=== PATIENT | female | born 1960 | race Caucasian/White ===

== ENCOUNTER 2022-04-19 09:16 | Emergency (ER) | payer MEDICAID, OTHER ==
[~2022-04-19] VITALS: Ht 170.2 cm; Wt 102.8 kg
[~2022-04-19 09:16] MED LIST: ACET60TA10; BENZ1TAB2 PO; CHLO50TA3 PO; CLON0.1T; DIVA500T13 PO; ERYT-124 PO; METF-370 PO; OMEP20TA69; SIMV20TA2 PO; TOPI50TA32; TRAM50TA2 PO; [UNRECOGNIZED DRUG - CODE]
[2022-04-19 09:53] VITALS: BP 156/100
[2022-04-19] MEDS ORDERED: ACETAMINOPHEN 500 MG TAB PO ONE (10:45)
[2022-04-19] MEDS ORDERED: METH750T22 PO (11:06)
[2022-04-19] MEDS ORDERED: ACET-1080 PO (11:06)
== END 2022-04-19 11:11 | disposition home or self-care (01) ==
LOC: ER 09:16
DX: S16.1XXA Strain of muscle, fascia and tendon at neck level, initial encounter (principal); S20.212A Contusion of left front wall of thorax, initial encounter; J44.9 Chronic obstructive pulmonary disease, unspecified; E11.9 Type 2 diabetes mellitus without complications; E78.5 Hyperlipidemia, unspecified; F17.210 Nicotine dependence, cigarettes, uncomplicated; Z88.0 Allergy status to penicillin; Z88.6 Allergy status to analgesic agent; Z90.710 Acquired absence of both cervix and uterus; V43.52XA Car driver injured in collision with other type car in traffic accident, initial encounter; Y93.89 Activity, other specified; Y92.89 Other specified places as the place of occurrence of the external cause; Y99.8 Other external cause status
CPT/HCPCS: 71046; 72040

== ENCOUNTER 2024-07-20 09:41 | Day surgery (SDC) | payer OTHER ==
[2024-07-20] VITALS (9 sets, daily range): BP systolic 128–167; BP diastolic 54–94; PULSE 83–93; RESP 14–18; TEMP 98.1; O2SAT 93–97
[~2024-07-20] VITALS: Ht 172.7 cm; Wt 98.0 kg
[~2024-07-20 09:41] MED LIST changes: -ACET60TA10; +ALBU108A5 IN; +AML5T PO; +ASPI-543 PO; -BENZ1TAB2 PO; +CHLO25TA PO; +CHLO25TA2 PO; -CHLO50TA3 PO; -DIVA500T13 PO; -ERYT-124 PO; +LISI40TA16 PO; +OMEP20TA PO; -OMEP20TA69; -SIMV20TA2 PO; +SIMV20TA20 PO; -TOPI50TA32; -TRAM50TA2 PO; +TRAZ-227 PO; -[UNRECOGNIZED DRUG - CODE]
[2024-07-20] MEDS ORDERED: MIDAZOLAM HCL 2MG/2ML 2ml VIAL (1mg/ml) ONE (11:26)
[2024-07-20] MEDS ORDERED: fentaNYL CITRATE 100 MCG/2 ML VL ONE (11:26)
[2024-07-20] MEDS ORDERED: VERAPAMIL 2.5MG/ML INJ 2ML VIAL IV ONE (11:26)
[2024-07-20] MEDS ORDERED: ANGIOMAX 250 MG VIAL IV ONE (11:26)
[2024-07-20] MEDS ORDERED: LIDOCAINE 2%HCL (LOCAL ANESTH.) INJ 20ML MDV ONE (11:26)
[2024-07-20] MEDS ORDERED: SODIUM CHL 0.9% 0 ML ONE (11:26)
[2024-07-20] MEDS ORDERED: IODIXANOL 320MG/ML 100ML BTL IV ONE (11:41)
[2024-07-20] MEDS ORDERED: HEPARIN SODIUM (PORCINE) 5000 UNITS/ML 1ML VIAL ONE (12:22)
--- NOTE | 2024-07-20 12:31 | DVHOP2 ---
Operative Report Operative Report CARDIAC TOW PICKER PROCEDURE REPORT [place], [place] Date of Service: 07/20/24 Bill Of Lading Clerk: Maria Elena Geller MD PROCEDURES PERFORMED: Coronary angiogram, left heart catheterization, conscious sedation administration and supervision, less than 15 minutes; fluoroscopy use and interpretation. FFR 1 vessel PREOPERATIVE DIAGNOSES: CT calcium LAD POSTOP DIAGNOSIS: moderate CAD DESCRIPTION OF PROCEDURE: The patient or appropriate family signed informed consent understanding the risks, benefits and alternatives of the procedure, they wished to proceed. The patient was brought [place] the cardiac superintendent [facility]ophysical [place] The patient was prepped in a sterile fashion. Sedation was used per cardiac cath protocol. I administered 2 mL of 2% lidocaine to the right wrist. With an antegrade front wall puncture. I cannulated the right radial artery and placed a 6-[place] Glidesheath slender. Next, an intra-arterial spasmolytic was administered. Next, a - 6French Greenleaf catheter and JR4 and were used for coronary angiogram and LVEDP measurement and pressure pullback. At the completion of procedure, all guides and wires were removed, and there were no immediate complications. 5000 U of IV heparin given. FINDINGS: RCA: Moderate vessel off the right sinus of Valsalva, there is a prox RCA 50- 60% stenosis. cath works FFR was 0.79 which is significatn however the lesion was close to the catheter and thought to be intermediate . LEFT MAIN: Moderate size left main, it bifurcates into LAD and circumflex. no severe stenosis CIRCUMFLEX: Moderate caliber vessel coming off the left main with no flow limiting stenosis. LAD: LAD is a moderate caliber vessel coming of the left main. very tortuous vessel. mid LAD has 30% stenosis and a small intramyocardial bridge noted. LVEDP of 12 mmhg CONCLUSIONS: 1. no Severe cad, moderate borderline RCA stenosis best treated medically with asa, statin, and beta olinda if indicated PLAN: Aggressive risk factor modification and medical management for the patient. MARIA ELENA GELLER MD Jul 20, 2024 12:31
--- NOTE | 2024-07-21 16:29 | ECG ---
[facility] Test Date: 2024-07-20 Test Time: 10:51:20 Pat Name: KOURTNEY MAURICIO Department: Room: Gender: F Director Of Technology: VICKI : 1960 Requested By: MARIA ELENA GELLER Order Number: [id number] Reading MD: Philip Dias Measurements Intervals [place] Rate: 84 P: 78 MT: 156 QRS: 47 QRSD: 82 T: 66 QT: 356 QTc: 420 Interpretive Statements Normal sinus rhythm Electronically Signed On 07-23-2024 13:09:02 PDT by Philip Dias Please click the below link to view image of tracing.
== END 2024-07-20 14:44 | disposition home or self-care (01) ==
LOC: CATH 09:41
PROVIDERS: ATTEND Internal Medicine
DX: I25.119 Atherosclerotic heart disease of native coronary artery with unspecified angina pectoris (principal); J43.9 Emphysema, unspecified; G47.30 Sleep apnea, unspecified; F41.8 Other specified anxiety disorders; F31.9 Bipolar disorder, unspecified; Z90.710 Acquired absence of both cervix and uterus; Z84.89 Family history of other specified conditions; Z88.0 Allergy status to penicillin; Z88.8 Allergy status to other drugs, medicaments and biological substances
CPT/HCPCS: 93005; 93458; C1769; C1894; J1644; J2250; J3010; J7030; Q9967; 99152; C9600